=== PATIENT | male | born 1945 | race Caucasian/White ===

== ENCOUNTER 2020-10-13 14:37 | Outpatient (CLI) | payer MEDICARE | END 2020-10-13 14:38 | disposition home or self-care (01) | LOC: BICULT 14:37 | PROVIDERS: ATTEND Family Medicine | DX: M79.604 Pain in right leg (principal); M79.605 Pain in left leg; R60.0 Localized edema; R53.82 Chronic fatigue, unspecified | CPT/HCPCS: 36415; 80053; 83880; 84443; 85025; 85379; 93970 ==